=== PATIENT | male | born 1960 | race Caucasian/White ===

== ENCOUNTER 2021-09-24 07:06 | Inpatient (IN) ==
--- NOTE | 2021-09-22 09:05 | Anesthesiology Consultation ---
Date of Service September 22, 2021 Assessment & Plan (1) Encounter for pre-operative examination: Chart Review Chart Review: Acceptable Risk for Surgery (pending preop Covid testing results ) and Patient NOT seen in Pre Admission Testing Per surgeon medical necessity 09/20/2021 = "The patient presents with evidence of advanced myeloradiculopathy. He has failed extensive course of nonoperative care including epidural injections and physical therapy. He is noting changes in coordination, strength deficits of the upper extremities and balance deficits with ambulation. In light of his severe spinal stenosis of the cervical spine presentation of myelopathy I am recommending urgent anterior cervical decompression fusion to include a C5 corpectomy and anterior cervical discectomy and fusion C6-C7." (Dr. Salgado aware and approved procedure as medically necessary to proceed- pending bed/staff availability- patient can proceed as scheduled) Per nursing assessment 09/21/21, patient denies any recent travel. No current Covid related symptoms. Pt's tested Covid positive 09/10/21 (pt's had loss of taste and smell starting 09/03/21). Pt denies any known Covid infection personally in the past 90 days. Pt is fully vaccinated for Covid. Preop Covid testing done 09/22/21= results pending. As long as patient's preop Covid test is negative- he may proceed as scheduled. [facility] Patient presents for routine follow-up. PCP aware of upcoming cervical surgery at the end of the month. Hypertensionwell controlled. Microhematuriarefer to urology. Migrainecontinue meds. Hyperlipidemiacontinue diet. Continue present medications. Follow-up in 6 months. History Surgery Operation Date: 09/24/21 09:50 Proposed Procedures p C6-C7 Anterior Cervical Discectomy Fusion, C4-C7 Fusion, C5 Corpectomy, Spinal Cord Monitoring - Bernard Jimenez, Height/Weight Height: 5 ft 10 in Weight: 108.862 kg Allergies Allergy/AdvReac Type Severity Reaction Status Date / Time Iodinated Contrast Media Allergy Severe Anaphylaxis Verified 09/21/21 07:47 iodine Allergy Severe Anaphylaxis Verified 09/21/21 07:48 cannabidiol (CBD) extract Allergy Intermediate Skin Verified 09/21/21 13:26 blistering adhesive tape Allergy Mild Skin Verified 09/21/21 08:53 irritation gabapentin AdvReac Intermediate Migraines Verified 09/21/21 08:53 meloxicam AdvReac Intermediate Migraines, Verified 09/21/21 08:53 tendonitis Medications Home Medications Medication Instructions Recorded Confirmed Last Taken amlodipine 10 mg tablet 10 mg PO HS 09/21/21 09/21/21 Unknown cholecalciferol (vitamin D3) 25 25 mcg PO QAM 09/21/21 09/21/21 Unknown mcg (1,000 unit) tablet (Vitamin D3) cyanocobalamin (vitamin B-12) 1,000 mcg PO 3XWK 09/21/21 09/21/21 Unknown 1,000 mcg capsule diphenhydramine HCl 50 mg capsule 100 mg PO HS 09/21/21 09/21/21 Unknown magnesium oxide 420 mg tablet 420 mg PO QPM 09/21/21 09/21/21 Unknown oxycodone 5 mg tablet 5 mg PO BID PRN 09/21/21 09/21/21 Unknown valacyclovir 1 gram tablet 1,000 mg PO UD PRN 09/21/21 09/21/21 Unknown (Valtrex) zolmitriptan 5 mg tablet 5 mg PO UD PRN 09/21/21 09/21/21 Unknown Past Medical History Medical History (Updated 09/22/21 @ 09:07 by Jade Cain PA-C) Degenerative disc disease Hematuria Trace hematuria ("Always" per pt) PCP aware- referring patient to urology after neck surgery History of COVID-19 Dx 11/22/2020 > Symptoms at time: Mild symptoms, cough, fatigue > resolved History of shingles Hx- face/eyelids (no current/recent issues) Hyperlipidemia Diet controlled per records Hypertension Migraine Obesity Post traumatic stress disorder Psoriatic arthritis Restless leg syndrome Spinal stenosis Past Family History Family History Other No family history of adverse response to anesthesia Past Surgical History Surgical History History of appendectomy History of back surgery 4 TOTAL LUMBAR SURGERIES (LUMBAR "RECONSRUCTION WITH BONE FUSION L5-S1 + REVISIONS) History of carpal tunnel release + ULNAR NERVE RELEASE (LEFT) History of colonoscopy History of tonsillectomy and adenoidectomy History of tooth extraction Social History Smoking Status: Former smoker tobacco type: cigarettes Do You Dip or Chew Tobacco: No Smoking End Date: AGE 22 Hx Alcohol Use: Yes alcohol intake frequency: holidays/special occasions only substance use type: does not use Testing Laboratory Results 09/02/21= WBC: 5.1 H/H: 15.0/43.8 PLATELETS: 267 SODIUM: 138 POTASSIUM: 4.2 CHLORIDE: 104 CO2: 24 BUN: 16 CREATININE: 1.1 GLUCOSE: 82 HGB A1C: 5.9 UA: 1+ ketones, 2+ urine blood, 0-5 urine WBC, 6-10 urine RBC- otherwise negative Electrocardiogram Date: 09/09/21 Findings: + NSR @ (73bpm) Normal EKG per confirming provider Chest X-Ray Date: 09/13/21 Findings: + NAD
[~2021-09-24 07:06] MED LIST: ACETAMINOPHEN 500 MG TAB PO SCH; CeleBREX 200 MG CAP PO SCH; LR 15ML/HR IV SCH; ceFAZolin 2000MG 2,000 MG/15 ML SYR IV SCH
[2021-09-24] MEDS ORDERED: PROPOFOL IV EMULSION 10 MG/ML 20 ML VIAL IV ONE (08:35)
[2021-09-24] MEDS ORDERED: DEXAMETHASONE SOD INJ 4 MG/ML VIAL ONE (08:35)
[2021-09-24] MEDS ORDERED: fentaNYL citrate 100 MCG/2 ML VIAL ONE (08:35)
[2021-09-24] MEDS ORDERED: ONDANSETRON INJ 2 MG/ML 2 ML VIAL ONE (08:35)
[2021-09-24] MEDS ORDERED: ROCURONIUM BROMIDE 10 MG/ML 5 ML VIAL IV ONE (08:35)
[2021-09-24] MEDS ORDERED: SUCCINYLCHOLINE CHLORIDE 20 MG/ML 10 ML VIAL IV ONE (08:43)
[2021-09-24] MEDS ORDERED: HYDROmorphone INJ 2 MG/ML SYR/VIAL ONE (08:43)
[2021-09-24] MEDS ORDERED: GLYCOPYRROLATE 0.2 MG/ML VIAL ONE (08:43)
[2021-09-24] MEDS ORDERED: MIDAZOLAM HCL 1 MG/ML 2ML VIAL ONE ×2 (08:43→12:27)
[2021-09-24] MEDS ORDERED: KETAMINE 50 MG/5 ML SYRINGE ONE (08:43)
--- NOTE | 2021-09-24 09:12 | History & Physical Bridge Note ---
Date of Service September 24, 2021 History & Physical Bridge Note I have examined the patient, reviewed the History & Physical and in the interval since the performance of the History & Physical I have noted the following changes of clinical significance: no changes noted
--- NOTE | 2021-09-24 09:13 | History & Physical Report ---
Date of Service September 24, 2021 Assessment & Plan (1) Cervical stenosis of spinal canal: Plan: C6-C7 anterior cervical discectomy and fusion, C4-C7 fusion, C5 corpectomy History of Present Illness Chief Complaint: Neck and bilateral arm pain Primary Care Provider: Ryley Martínez, HEAD OPERATOR-C This is a 7-year-old male who presents with chronic persistent neck and arm pain after failing course of nonoperative care is here for surgical invention. Allergies Allergy/AdvReac Type Severity Reaction Status Date / Time Iodinated Contrast Media Allergy Severe Anaphylaxis Verified 09/24/21 07:35 iodine Allergy Severe Anaphylaxis Verified 09/24/21 07:35 cannabidiol (CBD) extract Allergy Intermediate Skin Verified 09/24/21 07:35 blistering adhesive tape Allergy Mild Skin Verified 09/24/21 07:35 irritation gabapentin AdvReac Intermediate Migraines Verified 09/24/21 07:35 meloxicam AdvReac Intermediate Migraines, Verified 09/24/21 07:35 tendonitis Home Medications Medication Instructions Recorded Confirmed Type amlodipine 10 mg tablet 10 mg PO HS 09/21/21 09/24/21 History cholecalciferol (vitamin D3) 25 25 mcg PO QAM 09/21/21 09/24/21 History mcg (1,000 unit) tablet (Vitamin D3) cyanocobalamin (vitamin B-12) 1,000 mcg PO 3XWK 09/21/21 09/24/21 History 1,000 mcg capsule diphenhydramine HCl 50 mg capsule 100 mg PO HS 09/21/21 09/24/21 History magnesium oxide 420 mg tablet 420 mg PO QPM 09/21/21 09/24/21 History oxycodone 5 mg tablet 5 mg PO BID PRN 09/21/21 09/24/21 History valacyclovir 1 gram tablet 1,000 mg PO UD PRN 09/21/21 09/24/21 History (Valtrex) zolmitriptan 5 mg tablet 5 mg PO UD PRN 09/21/21 09/24/21 History Past Med/Surg History Medical History (Updated 09/24/21 @ 09:12 by Bernard Jimenez DO) Degenerative disc disease Hematuria Trace hematuria ("Always" per pt) PCP aware- referring patient to urology after neck surgery History of COVID-19 Dx 11/22/2020 > Symptoms at time: Mild symptoms, cough, fatigue > resolved History of shingles Hx- face/eyelids (no current/recent issues) Hyperlipidemia Diet controlled per records Hypertension Migraine Obesity Post traumatic stress disorder Psoriatic arthritis Restless leg syndrome Spinal stenosis Surgical History History of appendectomy History of back surgery 4 TOTAL LUMBAR SURGERIES (LUMBAR "RECONSRUCTION WITH BONE FUSION L5-S1 + REVISIONS) History of carpal tunnel release + ULNAR NERVE RELEASE (LEFT) History of colonoscopy History of tonsillectomy and adenoidectomy History of tooth extraction Family History Other No family history of adverse response to anesthesia Social History Smoking Status: Former smoker Smoking End Date: AGE 22; Second Hand Exposure: Yes ( A CHILD); Do You Dip or Chew Tobacco: No; Hx Alcohol Use: Yes Preferred Language: Tajik Forensics Analyst Required: No Beliefs That Will Affect Care: Orthodoxy Orthodoxy Beliefs: JEHOVAW WITNESS>NO BLOOD PRODUCTS Current Living Situation: Spouse Feels Safe at Home: Yes Safety Concerns: Feels Safe At This Time Assistive Devices: Glasses Assistive Devices Comment: READING GLASSES Physical Exam Physical Exam: Patient is alert and oriented Heart regular rhythm Lungs clear Results & Data ([facility]) Vital Signs (Past 12 Hours) Vital Signs Temp Pulse Resp BP Pulse Ox 09/24/21 07:41 36.7 C 97 H 20 153/99 H 97
[2021-09-24] MEDS ORDERED: ePHEDrine sulfate 50 MG/ML AMP IV PRN (09:14)
[2021-09-24] MEDS ORDERED: ONDANSETRON INJ 2 MG/ML 2 ML VIAL IV PRN ×2 (09:14→14:09)
[2021-09-24] MEDS ORDERED: ATROPINE SULFATE 0.1 MG/ML 10ML SYR IV PRN (09:14)
[2021-09-24] MEDS ORDERED: SUGAMMADEX SODIUM 200 MG/2 ML VIAL IV ONE (09:28)
[2021-09-24] MEDS ORDERED: FLOSEAL HEMOSTATIC MATRIX 10ML TOP ONE (10:26)
--- NOTE | 2021-09-24 12:08 | Operative Report ---
Post Operative Report Pre & Post Diagnosis Operation Date: 09/24/21 09:35 Pre-Op Diagnosis: Cervical spinal stenosis with myeloradiculopathy Post-Op Diagnosis: Same I identified the patient and participated in the time-out.: Yes Procedure Operation Date: 09/24/21 09:35 Actual Procedures #1 anterior cervical corpectomy with bilateral foraminotomies C5. #2 anterior cervical discectomy with bilateral foraminotomies C6-C7. #3 anterior cervical arthrodesis C4-C6 and C6-C7. #4 placement of 25 mm peek cage C4-C6 and 8 mm cage at C6-C7. #5 placement locally harvested morselized autograft combined with I factor in the interbody cages. #6 placement of stacy plate and screws from C4-C7. Surgeon Bernard Jimenez, DO Casual Shoe Inspector Miky Orellana Estimated Blood Loss 50 Findings See Below Patient is 5 foot 10 weighing over 109 kg with a BMI in excess of 34. Patient body habitus did contribute to significant technical difficulty from patient positioning through exposure. This added at least 50% increase to the operative time. Specimens None Indications This is a 61-year-old male who presents with evidence of cervical myeloradiculopathy. After failing course of nonoperative care is here for surgical invention. Description of Procedure Patient was met with identified informed consent obtained. Patient was then taken to the operative suite underwent intubation placed in the supine position the Marcio table with the head Castillo head of research & insights. All bony prominences well-padded eyes inspected to ensure no external pressure placed upon the. This went anterior cervical spine was prepped and draped in a sterile fashion. A longitudinal incision was then placed along the right anterior aspect of the cervical spine. Blunt dissection was then carried out down to and exposing anterior surface spine from C4-C7. Several 10 retractors placed. Then performed a complete discectomy of C4-C5 out to the uncovertebral joints bilaterally followed by C5-C6. [place] distraction pins were then placed in C4 and C6 to distract across the C5 vertebral body. A complete corpectomy was then performed include removal of all posterior annular fibers longitudinal ligament bilateral foraminotomies. Endplates then burred to subcortical being bone and 25 mm peek cage filled locally harvested morselized autograft combined with I factor tapped in position. Distracting apparatus was removed. I proceeded to C6-C7. Again a complete discectomy was performed out to the uncovertebral's bilaterally. [place] distracting pins again utilized. Removed all posterior annular fibers longitudinal ligament bilateral foraminotomies performed. Endplates were then burred to subcortical bleeding bone and a 8 mm peek cage filled with locally harvested morselized autograft and I factor tapped position. A 5 complete screws were then applied with the assistance of fluoroscopy. The incision was then copiously irrigated explored to ensure no damage to surrounding structures remaining bleeding. 15 round PAVEL drain inserted. The incision was then closed with 2 Vicryl in a fashion of 4 Monocryl for final skin closure. Steri-Strip sterile dressings placed. Patient will continue PACU stable condition. Please note spinal cord monitoring was utilized at the p rocedure no changes noted. Lastly Miky Orellana was present at the entire surgery while the patient positioning complex portions of the surgery and final skin closure. I attest to the content of the Intraoperative Record and any orders documented therein. Any exceptions are noted below.
[2021-09-24] MEDS: fentaNYL citrate 100 MCG/2 ML VIAL IV PRN ×4 (12:36→12:53)
--- NOTE | 2021-09-24 12:43 | Fluoroscopy Report ---
FL cervical 2-3V CLINICAL HISTORY: C5 CORPECTOMY C4-7 ACDF TECHNIQUE: 3 views were obtained with the C-arm in the OR with the above procedure. Total fluoroscopy time was 9.3 seconds. Total skin dose was 2.12 mGy. Comparison: None available at the time of this dictation. FINDINGS/IMPRESSION: Intraoperative images of ACDF and C5 corpectomy were obtained. Please correlate with intraoperative fluoroscopy and operative report. ACT 112: Negative or not required by law. Electronically signed by: Ankit Pitt M.D. 09/24/2021 12:41 PM
[2021-09-24] MEDS: HYDROmorphone INJ 2 MG/ML SYR/VIAL IV PRN ×2 (12:55→13:00)
--- NOTE | 2021-09-24 13:02 | Anesthesiology Progress Note ---
Date of Service September 24, 2021 Anesthesia Post Procedure Vital Signs Vital Signs: Temp Pulse Pulse Resp BP Pulse Ox 09/24/21 13:00 106 H 20 165/98 H 95 09/24/21 12:50 103 H 16 159/93 H 92 09/24/21 12:40 100 H 16 141/105 H 99 09/24/21 12:30 100 H 14 134/110 H 99 09/24/21 12:23 96.8 F L 100 H 16 162/110 H 98 09/24/21 07:41 98.1 F 97 H 20 153/99 H 97 Pain Intensity Posterior Neck: Pain Intensity: 5 Transfer of Care Handoff Completed per policy Notes Mental Status: alert / awake / arousable and participated in evaluation Patient Amnestic to Procedure: Yes Nausea / Vomiting: adequately controlled Pain: adequately controlled and improving with treatment Airway Patency, RR, SpO2: stable & adequate BP & HR: stable & adequate Hydration State: stable & adequate Anesthetic Complications: no major complications apparent and Pt Satisfied with anesthetic care
[2021-09-24] MEDS ORDERED: ONDANSETRON 4 MG OD TAB PO PRN (14:09)
[2021-09-24] MEDS ORDERED: ACETAMINOPHEN 500 MG TAB PO PRN (14:09)
[2021-09-24] MEDS ORDERED: HYDROmorphone INJ 0.5 MG/0.5 ML SYR IV PRN (14:09)
[2021-09-24] MEDS ORDERED: ALUMINUM/MAGNESIUM SUSP 30 ML UDC PO PRN (14:09)
[2021-09-24] MEDS ORDERED: diphenhydrAMINE Capsule 25 MG CAP PO PRN (14:09)
[2021-09-24] MEDS ORDERED: LORazepam 0.5 MG TAB PO PRN (14:09)
[2021-09-24] MEDS ORDERED: NALOXONE HCL 0.4 MG/1 ML VIAL/CARP IV PRN (14:09)
[2021-09-24] MEDS ORDERED: dexAMETHasone 8 MG in SYRINGE 0 ML IV PRN (14:09)
[2021-09-24] MEDS ORDERED: HYDROmorphone INJ 1 MG/ML SYRINGE IV PRN (14:09)
[2021-09-24] MEDS ORDERED: RACEPINEPHRINE 2.25% NEBU SOLN 0.5 ML VIAL INH PRN (14:09)
[2021-09-24] MEDS ORDERED: ACETAMINOPHEN 1,000 MG/100 ML VIAL IV PRN (14:09)
[2021-09-24] MEDS ORDERED: hydrOXYzine HCl 25 MG TAB PO PRN (14:09)
[2021-09-24] MEDS ORDERED: MAGNESIUM HYDROXIDE SUSP 30 ML UDC PO PRN (14:09)
[2021-09-24] MEDS ORDERED: METOCLOPRAMIDE HCL INJ 5 MG/ML 2 ML VIAL IV PRN (14:09)
[2021-09-24] MEDS ORDERED: LORazepam 0.5 MG/1 ML VIAL IV PRN (14:09)
[2021-09-24] MEDS ORDERED: DO NOT ADMINISTER PNEUMOCOCCAL VACCINE PRN (14:09)
[2021-09-24] MEDS ORDERED: FAMOTIDINE 20 MG TAB PO PRN (14:09)
[2021-09-24] MEDS ORDERED: PROMETHAZINE HCL 12.5 MG in SODIUM CHLORIDE 0.9% 50 ML IV PRN (14:09)
[2021-09-24] MEDS ORDERED: DO NOT ADMINISTER FLU VACCINE PRN (14:09)
[2021-09-24] MEDS ORDERED: bisacodyL 10 MG SUPP PR PRN (14:09)
[2021-09-24] MEDS ORDERED: SOD PHOSPHATE/SOD BIPHOSPHATE ENEMA 132 ML BTL PR PRN (14:09)
[2021-09-24] MEDS: [UNRECOGNIZED DRUG - REMARK] SCH ×4 (14:22→23:37)
[2021-09-24] MEDS: SODIUM CHLORIDE 0.9% 1000ML 1,000 ML IV SCH ×2 (14:22→20:57)
[2021-09-24] MEDS ORDERED: CYANOCOBALAMIN 500 MCG TABLET (VITAMIN B-12) PO SCH (15:00)
[2021-09-24] MEDS: dexAMETHasone 6 MG in SYRINGE 0 ML IV SCH ×2 (16:22→23:37)
--- NOTE | 2021-09-24 16:25 | Consultation ---
Date of Consultation September 24, 2021 Assessment & Plan (1) S/P cervical spinal fusion: Post op day# 0 S/P ACDF by Dr Jimenez EBL#25ml -pain management per ortho -wound management per ortho -PT/OT as appropriate -DVT prophylaxis per ortho -monitor H&H for acute blood loss anemia (2) Hypertension: Suspect hypertensive, tachycardia secondary to pain Control pain, monitor BP, pulse Continue amlodipine May need to add additional agent (3) Hyperlipidemia: Diet controlled DVT Prophylaxis SCDs per ortho Full Code as per discussion with pt Follows with [facility] for routine care Pt was seen and care coordinated with Dr De Jesus. See addendum Thank you for this consultation. We will follow the patient with you during their hospital stay. You can reach a [facility] via [employer] Supervising Physician Co-Signing Physician Notes Attending Addendum: delayed entry date of service noted above care coordinated with TESSA Charissa palacios please refer to her notes for full details, I agree with her notes patient seen and examined, records reviewed by myself as well on exam, patient seen resting in chair, comfortable, having dinner States neck pain is moderate Some difficulty with swallowing liquids, not with solids no chest pain, dyspnea, palpitations, dizziness no other symptoms VS noted and reviewed oriented 3 , not in distress, speaks in sentences with no effort nor accessory muscle use Neck collar in place, with drain in place, minimal serosanguineous output normal rate, regular rhythm, no murmurs clear breath sounds bilaterally non distended, soft, nontender no bipedal edema, erythema, warmth no neuro deficits ASSESSMENT AND PLAN Status post cervical spine fusion Stable overall Monitor swallowing Hypertension Mildly elevated likely secondary to pain Continue with pain management Continue usual amlodipine As needed hydralazine other diagnoses and plan of care as per TESSA Selam Hale notes Rogerio De Jesus MD History of Present Illness Requesting Physician: Dr Jimenez Reason for Consultation: Post op medical management Attending Physician: Bernard Jimenez DO History of Present Illness Patient is 61-year-old male with PMH HTN, HLD, h/o recurrent herpes zoster, degenerative disc disease, migraine seen in medical consultation s/p ACDF today by Dr. Jimenez. Postop patient reports posterior neck pain. Has been drinking water and denies any choking. Has chronic bilateral upper extremity paresthesias and feels these are at baseline. Denies fever/chills, diaphoresis, N/V/D/C, FIELD, dizziness, syncope, vision changes, neck pain, CP, SOB, orthopnea, palpitations, rhinorrhea, abdominal pain, extremity weakness, extremity edema, rashes, urinary symptoms. Allergies Allergy/AdvReac Type Severity Reaction Status Date / Time Iodinated Contrast Media Allergy Severe Anaphylaxis Verified 09/24/21 07:35 iodine Allergy Severe Anaphylaxis Verified 09/24/21 07:35 cannabidiol (CBD) extract Allergy Intermediate Skin Verified 09/24/21 07:35 blistering adhesive tape Allergy Mild Skin Verified 09/24/21 07:35 irritation gabapentin AdvReac Intermediate Migraines Verified 09/24/21 07:35 meloxicam AdvReac Intermediate Migraines, Verified 09/24/21 07:35 tendonitis Home Medications Medication Instructions Recorded Confirmed Type amlodipine 10 mg tablet 10 mg PO DAILY 09/21/21 09/24/21 History cholecalciferol (vitamin D3) 25 25 mcg PO QAM 09/21/21 09/24/21 History mcg (1,000 unit) tablet (Vitamin D3) cyanocobalamin (vitamin B-12) 1,000 mcg PO 3XWK 09/21/21 09/24/21 History 1,000 mcg capsule diphenhydramine HCl 50 mg capsule 100 mg PO HS 09/21/21 09/24/21 History magnesium oxide 420 mg tablet 420 mg PO QPM 09/21/21 09/24/21 History oxycodone 5 mg tablet 5 mg PO BID PRN 09/21/21 09/24/21 History valacyclovir 1 gram tablet 1,000 mg PO UD PRN 09/21/21 09/24/21 History (Valtrex) zolmitriptan 5 mg tablet 5 mg PO UD PRN 09/21/21 09/24/21 History oxycodone 5 mg tablet 5 mg PO Q6H PRN #20 tab 09/24/21 Rx tramadol 50 mg tablet 50 mg PO Q6H PRN #20 tab 09/24/21 Rx Patient History Medical History Degenerative disc disease Hematuria Trace hematuria ("Always" per pt) PCP aware- referring patient to urology after neck surgery History of COVID-19 Dx 11/22/2020 > Symptoms at time: Mild symptoms, cough, fatigue > resolved History of shingles Hx- face/eyelids (no current/recent issues) Hyperlipidemia Diet controlled per records Hypertension Migraine Obesity Post traumatic stress disorder Psoriatic arthritis Restless leg syndrome Spinal stenosis Surgical History History of appendectomy History of back surgery 4 TOTAL LUMBAR SURGERIES (LUMBAR "RECONSRUCTION WITH BONE FUSION L5-S1 + REVISIONS) History of carpal tunnel release + ULNAR NERVE RELEASE (LEFT) History of colonoscopy History of tonsillectomy and adenoidectomy History of tooth extraction Family History Other No family history of adverse response to anesthesia Social History Smoking Status: Former smoker Smoking End Date: AGE 22; Second Hand Exposure: Yes ( A CHILD); Do You Dip or Chew Tobacco: No; Hx Alcohol Use: Yes Preferred Language: Senegalese Communications Maintainer Required: No Beliefs That Will Affect Care: Jewish Jewish Beliefs: JEHOVAW WITNESS>NO BLOOD PRODUCTS Current Living Situation: Spouse Feels Safe at Home: Yes Safety Concerns: Feels Safe At This Time Assistive Devices: None Assistive Devices Comment: READING GLASSES Review of Systems Review of Systems: All systems reviewed & are unremarkable except as noted in HPI & below Physical Exam Physical Exam: General: no distress, WDWN Head: normocephalic, atraumatic Eyes:conjunctiva non-injected, anicteric ENT: normal inspection external ears, nose, mucous membranes moist Neck: supple, trachea midline, C-collar in place, PAVEL drain in place with serosanguineous drainage Lungs: clear, no respiratory distress, no wheezing/rhonchi/rales CV: Regular rhythm, tachycardia rate 104, no murmur, no pretibial edema Abd: normal BS, soft, non-tender Ext: no cyanosis, no calf tenderness, equal custom decorating consultant strength bilaterally, sensation to light touch intact Neuro: A&O x 3, no focal deficits noted, normal affect Skin: warm, dry Results & Data ([facility]) Vital Signs (Past 12 Hours) Vital Signs Temp Pulse Pulse Pulse Resp BP Pulse Ox 09/24/21 16:00 111 H 18 178/95 H 98 09/24/21 15:00 106 H 18 149/85 H 95 09/24/21 14:30 106 H 18 166/111 H 93 09/24/21 14:00 36.3 C L 117 H 18 164/83 H 91 09/24/21 13:40 117 H 18 144/83 H 95 09/24/21 13:30 117 H 18 139/100 94 09/24/21 13:20 112 H 18 146/103 H 98 09/24/21 13:10 36.5 C 99 H 20 147/95 H 96 09/24/21 13:00 106 H 20 165/98 H 95 09/24/21 12:50 103 H 16 159/93 H 92 09/24/21 12:40 100 H 16 141/105 H 99 09/24/21 12:30 100 H 14 134/110 H 99 09/24/21 12:23 36.0 C L 100 H 16 162/110 H 98 09/24/21 07:41 36.7 C 97 H 20 153/99 H 97
[2021-09-24] MEDS: oxyCODONE HCL IR 5 MG TAB (IMMEDIATE RELEASE) PO PRN ×2 (16:26→20:58)
[2021-09-24] MEDS ORDERED: hydrALAZINE HCL 20 MG/ML VIAL IV PRN (16:58)
[2021-09-24] MEDS: ceFAZolin 2000MG 2,000 MG/15 ML SYR IV SCH (18:02)
[2021-09-24] MEDS: traMADol HCL 50 MG TABLET PO PRN ×2 (18:08→22:51)
[2021-09-24] MEDS ORDERED: DOCUSATE SODIUM/SENNA 50/8.6MG TAB PO SCH (21:00)
[2021-09-24] MEDS ORDERED: MAGNESIUM OXIDE 400 MG TAB PO SCH (21:00)
[2021-09-24] MEDS ORDERED: amLODIPine BESYLATE 5 MG TAB PO SCH (21:00)
[2021-09-24] MEDS ORDERED: diphenhydrAMINE Capsule 25 MG CAP PO SCH (21:00)
[2021-09-25] MEDS: oxyCODONE HCL IR 5 MG TAB (IMMEDIATE RELEASE) PO PRN ×3 (01:22→09:50)
[2021-09-25] MEDS: ceFAZolin 2000MG 2,000 MG/15 ML SYR IV SCH (01:24)
[2021-09-25] MEDS: traMADol HCL 50 MG TABLET PO PRN ×2 (03:15→13:20)
[2021-09-25] MEDS: SODIUM CHLORIDE 0.9% 1000ML 1,000 ML IV SCH (03:40)
[2021-09-25] MEDS: POLYETHYLENE (MIRALAX) 17 GM PACK PO SCH ×2 (05:44→12:16)
[2021-09-25 07:27] LABS: Hemoglobin 13.2 g/dL (14.0-18.0); Mean Corpuscular Hemoglobin 31.4 pg (25-34); Mean Corpuscular Hgb Conc 33.8 g/dL (32-36); Mean Corpuscular Volume 92.9 fL (80-100); Mean Platelet Volume 10.1 fL (7.4-10.4); Platelet Count 258 K/uL (130-400); RDW Coefficient of Variation 13.6 % (11.5-14.5); RDW Standard Deviation 46.4 fL (36.4-46.3); White Blood Count 15.77 K/uL (4.8-10.8)
[2021-09-25 07:56] LABS: BUN Creatinine Ratio 12.2 (10-20); Calcium 8.8 mg/dl (8.5-10.1); Creatinine Clr Calc Pharmacy 84.1 ml/min; Est GFR (African American) 78.9 ml/min; Est GFR (Non-African American) 68.1 ml/min; Potassium 4.1 mmol/L (3.5-5.1)
[2021-09-25] MEDS ORDERED: amLODIPine BESYLATE 5 MG TAB PO SCH (09:00)
[2021-09-25] MEDS ORDERED: CHOLECALCIFEROL 1,000 UNITS 25 MCG TAB PO SCH (09:00)
[2021-09-25] MEDS: dexAMETHasone 6 MG in SYRINGE 0 ML IV SCH (09:49)
--- NOTE | 2021-09-25 10:27 | Discharge Summary ---
Date of Service September 25, 2021 Admission HPI Per Admitting Provider This is a 7-year-old male who presents with chronic persistent neck and arm pain after failing course of nonoperative care is here for surgical invention. Principal Diagnosis Cervical spinal stenosis with myeloradiculopathy Discharge Data Allergies Allergy/AdvReac Type Severity Reaction Status Date / Time Iodinated Contrast Media Allergy Severe Anaphylaxis Verified 09/24/21 07:35 iodine Allergy Severe Anaphylaxis Verified 09/24/21 07:35 cannabidiol (CBD) extract Allergy Intermediate Skin Verified 09/24/21 07:35 blistering adhesive tape Allergy Mild Skin Verified 09/24/21 07:35 irritation gabapentin AdvReac Intermediate Migraines Verified 09/24/21 07:35 meloxicam AdvReac Intermediate Migraines, Verified 09/24/21 07:35 tendonitis Consultations 09/24/21 14:09 Consult Hospitalist Routine Procedures Performed Operation Date: 09/24/21 09:35 Actual Procedures p C6-C7 Anterior Cervical Discectomy Fusion, C4-C7 Fusion, C5 Corpectomy, Spinal Cord Monitoring(Not Applicable) - Bernard Jimenez DO Ordered Studies 09/24/21 09:35 FL cervical 2-3V Routine Hospital Course (1) Cervical stenosis of spinal canal: Patient underwent anterior cervical corpectomy decompression fusion tolerated this well was taken to the orthopedic floor postoperatively. Postop day #1 some symptoms are markedly improved. Swallowing well. No hoarseness. PAVEL drain decreasing appropriately. Subsequent discharge home. Discharge orders instructions from the chart for further view. Total Time Total Time Spent Total Time Spent (In Minutes): 20 minutes Discharge Plan Discharge Items Patient Disposition: Home - Self-Care Reason For Visit: Spinal Stenosis, Cervical Region Discharge Diagnosis: Cervical spinal stenosis with myeloradiculopathy Activity: As commented below Non-emergency contact: Primary Care Provider Call non-emergency contact if: you have any medication questions Follow-up/Referrals: Ryley Martínez NP-C [Primary Care Provider] - Diet: Regular Addtl Attending Provider Instructions: ACTIVITY RECOMMENDATIONS: SELF CARE INSTRUCTIONS AFTER CERVICAL FUSIONS 1. No smoking. Smoking drastically decreases the chance of a solid fusion. 2. No bending, lifting more than 5 pounds, or twisting (roll like a log when turning in bed). 3. You may shower 3 days after surgery. Thoroughly dry wound. Do not soak in the tub. 4. Cervical collar: Must be worn at all times including sleeping. You may remove the brace only to bath, eat and if you are sitting in a recliner. 5. Please walk as much as you can for exercise. Gradually increase the distance that you walk as your endurance increases. SPECIAL CARE INSTRUCTIONS: VERY IMPORTANT TO READ AND REVIEW A. Do not take any anti-inflammatory medications (i.e. Indocin, Advil, Aspirin, Naprosyn, Aleve, Motrin, etc.) as these may inhibit the chance of a solid fusion. Tylenol is okay to take. B. Your surgical incision has been closed with a cosmetic suture under the skin that will dissolve in about 6 weeks. In 14 days, you can use a pair of clean scissors and cut the suture that is left outside of the skin at the ends of your incision. C. Complications are uncommon, but please contact us if you have any signs or symptoms of: 1. wound infection (fever higher than 102.5 degrees F, redness, separation of wound, drainage, or increasing pain from the incision) 2. blood clots in legs (pain, swelling, redness and warmth in legs) 3. urinary tract infection (fever higher than 102.5 degrees, burning upon urination or increased frequency of urination) 4. nerve problems (inability to walk on your toes or heels, numbness, loss of bowel or bladder control) 5. any other symptoms that concern you. D. Please call the office at if you have any concerns or questions about your operation or recovery. MANAGING PAIN AFTER SPINAL SURGERY 1. Narcotic medication is intended for short-term use and will be provided for surgical pain. Surgical pain usually lasts for a period of 4-6 weeks. Narcotic medication includes Percocet, Vicodin, Darvocet, Tylenol #3 or Lortab. 2. Longer-term pain is more appropriately treated with non-narcotic medication such as Tylenol ES. 3. Muscle spasm is not appropriately treated with narcotics. Muscle relaxers such as Soma, Flexeril or Skelaxin can be used along with Tylenol ES. 4. Remember that we all live with some "aches and pains". This is not unusual or uncommon after an injury or as we get older. 5. We will provide appropriate medication within the normal guidelines of their prescribed use. We will also be very cautious and aware of potential abuse and extended duration of patients' medication needs. 6. Please allow 2-3 days to process refills. Prescriptions will not be mailed but must be picked up at the office. FOLLOW UP VISIT: Keep your scheduled follow-up appointment. Any questions, please call the office at . Pending Studies at Discharge: No Stand-Alone Forms: My [facility], Smoking Cessation Medications and DC Order Prescriptions: New oxycodone 5 mg tablet 5 mg PO Q6H PRN (Reason: pain, severe) Qty: 20 RF: 0 tramadol 50 mg tablet 50 mg PO Q6H PRN (Reason: pain, moderate) Qty: 20 RF: 0 Continued magnesium oxide 420 mg Tablet 420 mg PO QPM RF: 0 diphenhydramine HCl 50 mg Capsule 100 mg PO HS RF: 0 valacyclovir [Valtrex] 1 gram Tablet 1,000 mg PO UD PRN (Reason: ZOSTER BREAKOUT) RF: 0 amlodipine 10 mg Tablet 10 mg PO DAILY RF: 0 oxycodone 5 mg Tablet 5 mg PO BID PRN (Reason: Pain) RF: 0 cholecalciferol (vitamin D3) [Vitamin D3] 25 mcg (1,000 unit) Tablet 25 mcg PO QAM RF: 0 cyanocobalamin (vitamin B-12) 1,000 mcg Capsule 1,000 mcg PO 3XWK RF: 0 zolmitriptan 5 mg Tablet 5 mg PO UD PRN (Reason: Migraine Headache) RF: 0 Discharge Orders: Discharge Order (Routine); Ordered 09/25/21 Ordered By: Bernard Jimenez Admission Data Admit Date/Time: 09/24/21 12:11 Attending Provider: Bernard Jimenez Admit Provider: Bernard Jimenez Primary Care Provider: Ryley Martínez Other Providers: Alejandra Morrison ; [facility] ; Rogerio De Jesus
--- NOTE | 2021-09-25 13:52 | Hospitalist Progress Note ---
Date of Service September 24, 2021 Assessment & Plan (1) S/P cervical spinal fusion: Plan: Post op day#1 S/P ACDF by Dr Barbara PISANO#25ml Stable overall Hemoglobin 13 No problems with swallowing Pain much better Stable for discharge today (2) Hypertension: Plan: Continue usual amlodipine Anticipate improvement with blood pressure at home with good pain control at rest (3) Hyperlipidemia: Plan: Diet controlled Thank you for this consultation. We will follow the patient with you during their hospital stay. You can reach a member of the [facility] 24/04 via [email or web address] Admission and Anticipated Discharge Date Admission Date: September 24, 2021 Subjective Follow-up for status post cervical spine fusion surgery, etc. Seen resting in bedside chair, comfortable, not in distress In good spirits States his pain is much better today no chest pain, dyspnea, palpitations, dizziness No difficulty with swallowing No other symptoms Review of Systems Review of Systems: all noted and negative except for above Physical Exam Physical Exam: General- oriented x 3, not in distress, speaks in sentences with no effort or accessory muscle use Eyes- anicteric Neck- no JVD Lungs- clear BS BL Heart- normal rate, regular rhythm; no murmurs Abdomen- normal bowel sounds, nondistended, soft, nontender Extremities- no pretibial edema, no calf tenderness Neuro- alert, oriented x 3; no gross focal neurologic deficits Skin- warm & dry Results & Data Results & Data ([facility]) Vital Signs (Past 12 Hours) Vital Signs Temp Pulse Pulse Pulse Resp BP Pulse Ox 09/24/21 17:00 113 H 18 160/111 H 95 09/24/21 16:00 111 H 18 178/95 H 98 09/24/21 15:00 106 H 18 149/85 H 95 09/24/21 14:30 106 H 18 166/111 H 93 09/24/21 14:00 36.3 C L 117 H 18 164/83 H 91 09/24/21 13:40 117 H 18 144/83 H 95 09/24/21 13:30 117 H 18 139/100 94 09/24/21 13:20 112 H 18 146/103 H 98 09/24/21 13:10 36.5 C 99 H 20 147/95 H 96 09/24/21 13:00 106 H 20 165/98 H 95 09/24/21 12:50 103 H 16 159/93 H 92 09/24/21 12:40 100 H 16 141/105 H 99 09/24/21 12:30 100 H 14 134/110 H 99 09/24/21 12:23 36.0 C L 100 H 16 162/110 H 98 09/24/21 07:41 36.7 C 97 H 20 153/99 H 97
== END 2021-09-25 14:43 | disposition home or self-care (01) | DRG 472 ==
LOC: ASU 07:06 → 3E 12:11